=== PATIENT | female | born 1970 | race Caucasian/White ===

== ENCOUNTER 2022-03-15 20:18 | Emergency (ER) | payer OTHER ==
[~2022-03-15] VITALS: Ht 170.2 cm; Wt 85.5 kg
[~2022-03-15 20:18] MED LIST: NORCO 325 MG-51 TAB PO; PRINIVIL10 MG PO; PYRIDIUM 100MG100 MG PO; SENOKOT S 50 MG1 TAB PO; WATER PILL PO
[2022-03-15 20:28] VITALS: TEMP 98.4
[2022-03-15] MEDS ORDERED: NAPROSYN500 MG PO (21:17)
[2022-03-15 21:33] VITALS: BP 139/85; PULSE 84
== END 2022-03-15 21:33 | disposition home or self-care (01) ==
LOC: COL.ER 20:18
DX: M79.89 Other specified soft tissue disorders (principal); M79.631 Pain in right forearm
CPT/HCPCS: J1885